=== PATIENT | male | born 1950 | race Caucasian/White ===

== ENCOUNTER → 2016-11-14 | Outpatient (CLI) | payer BC ==
[~2016-11-14] MED LIST: CMD5 PO; FLEC50TA20 PO; LOSA50TA6 PO; METO-551 PO
[2016-11-14 11:43] LABS: HEMATOCRIT 41.6 % (42-52); MEAN CELL VOLUME 87.2 fL (80-100); MEAN CORPUSCULAR HEMOGLOBIN 29.6 pg (25-34); MEAN CORPUSCULAR HGB CONC 33.9 g/dl (32-36); MEAN PLATELET VOLUME 11.3 fL (7.4-10.4); PLATELET COUNT 207 K/uL (130-400); RED BLOOD COUNT 4.77 M/uL (4.7-6.1); WHITE BLOOD COUNT 6.86 K/uL (4.8-10.8)
[2016-11-14 12:10] LABS: ALT/SGPT 22 U/L (12-78); AST/SGOT 13 U/L (15-37); BLOOD UREA NITROGEN 22 mg/dl (7-18); BUN/CREATININE RATIO 15.8 (10-20); CALCIUM 8.8 mg/dl (8.5-10.1); CARBON DIOXIDE 26 mmol/L (21-32); CHLORIDE 105 mmol/L (98-107); GLUCOSE 91 mg/dl (70-99); SODIUM 140 mmol/L (136-145)
[2016-11-14 12:13] LABS: CHOLESTEROL 149 mg/dl (0-200); HDL CHOLESTEROL 50 mg/dl; LDL CHOLESTEROL CALCULATED 74 mg/dl; TRIGLYCERIDES 123 mg/dl (0-150); VERY LOW DENSITY LIPOPROT CALC 25 mg/dl
== END | disposition home or self-care (01) ==
LOC: C.LAB1850 10:41
PROVIDERS: ATTEND Internal Medicine Cardiovascular Disease
DX: I48.91 Unspecified atrial fibrillation (principal); I10 Essential (primary) hypertension; E78.5 Hyperlipidemia, unspecified; Z79.01 Long term (current) use of anticoagulants

== ENCOUNTER → 2016-12-06 | Outpatient (CLI) | payer BC | END | disposition home or self-care (01) | LOC: C.LAB1850 11:19 | PROVIDERS: ATTEND Internal Medicine Cardiovascular Disease | DX: R07.9 Chest pain, unspecified (principal) ==

== ENCOUNTER → 2017-03-07 | Outpatient (CLI) | payer BC ==
--- NOTE | 2017-03-08 06:39 | PAP/PSG TECHNICIAN REPORT ---
[facility] Pharmacy Grad Intern Polysomnogram Report Study name: None Report date: 03/08/2017 Study date: 03/07/2017 Referring Physician: DR. LEDEZMA Name: ARMANDO, PABLO Tellez Interpreting Physician: Jared Santoro D.O. Date of : 1950 Pharmacy Grad Intern: Charlene Lyons RPS. Sex: Male Age: 66 Study Type: PSG Weight: 204 lbs Height: 66 years, Height 5' 11" BMI: 28.45 Medications: FLECAINIDE ACETATE 50 MG, METOPROLOL 25 MG, WARFARIN 5 MG, ATORVASTATIN 40 MG, LOSARTAN 50 MG Patient History 66 yr-old male here for a baseline study. He has a history of atrial fibrillation, daytime sleepiness, and snoring. His Cantril scale is 12. The test was started on room air. ETCO2 testing was not utilized during this study. Room 3 Parameters Monitored NPSG: E1-M2, E2-M1, Fp1-M2, Fp2-M1, F3-M2, F4-M2, F4-M1, C3-M2, C4-M2, C4-M1, O1-M2, O2-M2, O2-M1, T3-M2, T4-M1, P3-M2, P4-M1, CHIN1, CHIN2, HR, EKG, Legs, PFLOW, SNOR, FLOW, CFLOW, Tidal Volume, THOR, ABDO, SpO2, PLTH, CPRESS, ETCO2 Wave, ETCO2, pH Sleep Architecture Sleep Stages Time at Lights Off 11:00:26 PM STAGES Time (min.) TST (%) Time at Lights On 5:37:26 AM Wake 125.5 -- Total Recording Time (TRT) 397.00 min. N1 38.0 14 Total Sleep Period (TSP) 358.5 min. N2 156.5 58 Total Sleep Time (TST) 271.5min. N3 0.0 0 Awake Time 125.5 min. REM 77.0 28 Wake after Sleep Onset 87.5 min. Sleep Efficiency (SE) 68 % Sleep Onset Latency (GUNNER) 38.0 min. Number of Stage 1 Shifts None Awakenings 12 Stage Changes 54 Number of REM periods 4 REM 77.0 28 REM Latency 40.5 min. NREM 194.5 72 Body Position Analysis Supine Right Left Side Prone Vertical Total Sleep Time (min.) 40.7 168.5 103.0 271.50 0.0 0.0 Total Sleep Time (%) 0% 62% 38% 100 0% N/A% Total Sleep Time REM (min.) 0.0 30.0 47.0 None 0.0 0.0 Total Sleep Time NREM (min.) 0.0 138.5 56.0 None 0.0 0.0 Intermittent Wake (min.) 40.7 68.2 16.6 None 0.0 0.0 Total Sleep Period (%) 3% None None None None None Arousals Myoclonus (PLM) * Events Count Index Events Count Index Spontaneous 33 7 Events Awake (PLMW) 83 39.7 Respiratory 1 0.2 Events Asleep w/ Arousal (PLMA) 7 1.5 PLM 7 2 Events Asleep w/o Arousal (PLMS) 49 10.8 Snoring 7 2 Total Asleep 56 12.4 Total 48 11 Total 139 21 Respiratory Analysis * CA OA MA CH H RERA Total Count 0 0 0 0 9 1 9 Index 0.0 0.0 0.0 0 2.0 0 2.2 Mean Duration 0.0 0.0 0.0 0.00 29.9 18.8 28.7 Longest Duration 0.0 0.0 0.0 0.00 0.0 18.8 59.3 Respiratory Event Summary Total Supine ~Supine Right Left Prone REM NREM Apneas Count 0 N/A 0 0 0 N/A 0 0 Index 0.0 N/A 0 0.0 0.0 N/A 0 0 Hypopneas (4% Desat) Count 9 N/A 9 5 4 N/A 8 1 Index 2.0 N/A 2 1.8 2.3 N/A 6.2 0.3 Apneas & All Hypopneas Count 9 N/A 9 5 4 N/A 8 1 Index 2.0 N/A 2 2 2 N/A 6.2 0.3 Respiratory Events (Diamond Sorter+All Hyp+RERA) Count 9 N/A 10 5 5 N/A 8 1 Index 2.2 N/A 2 1.8 2.9 N/A 7.0 0.3 Respiratory Related Arousal Count 1 N/A 1 0 1 N/A 1 0 Index 0.2 N/A 0 0 1 N/A 1 0 Snoring Analysis Supine Right Left Prone REM NREM Total Snore duration 1.1 min Snores count N/A 13 19 N/A 16 16 32 Snore mean duration 2.1 Sec Snores index N/A 5 11 N/A 12.5 4.9 7.1 TST with snoring (%) 0.4% Desaturation Event Summary: Minimum %SpO2 Event Count Mean/Min/Max Duration(sec.) Desaturation Index % Time In Bed > 90 40 32.5 / 13.3 / 59.8 7.1 85.8 86 - 90 4 21.9 / 9.8 / 28.3 4.3 14.1 81 - 85 0 N/A 0.0 0.0 76 - 80 0 N/A 0.0 0.0 71 - 75 0 N/A 0.0 0.0 66 - 70 0 N/A 0.0 0.0 61 - 65 0 N/A 0.0 0.0 56 - 60 0 N/A 0.0 0.0 51 - 55 0 N/A 0.0 0.0 < 50 0 N/A 0.0 0.0 Total REM NREM Awake <50% 0.0 min. 0.0 min. 0.0 min. 0.0 min. 51 - 60% 0.0 min. 0.0 min. 0.0 min. 0.0 min. 61 - 70% 0.0 min. 0.0 min. 0.0 min. 0.0 min. 71 - 80% 0.0 min. 0.0 min. 0.0 min. 0.0 min. 81 - 90% 55.8 min. 14.4 min. 13.7 min. 27.7 min. 91 - 100% 338.3 min. 62.6 min. 180.8 min. 95.0 min. Average 92 92 92 92 Minimum SpO2 84 87 89 84 Desaturation Event Index 6.2 9.4 0.3 13.9 # Desat. Events below 89% 19 4 N/A 15 Time(%) with Saturation below 89% 1.5 0.5 0.0 1.0 Time(min.) with Saturation below 89% 5.9 1.8 0.0 4.1 Time (mins) REM (mins) NREM (mins) % of TST SpO2 Below 90% 12 12 NN/A 2.3 SpO2 Below 88% 2 0 0 0 Heart Rate Analysis Min (bpm) Max (bpm) Average (bpm) Awake 41 127 47 NREM 41 75 43 REM 39 63 43 Overall 39 75 43 Supplemental O2 Values Minimum O2 level: None Value Start Time End Time Pharmacy Grad Intern Comments Mr. Delgado slept in the right and left positions. No cardiac arrhythmia were noted. Some PLMs were noted. No bruxism noted. Snoring was noted and scored as a 1 on a scale of 1 through 5. (0=no snoring, 5=snoring loud enough to be heard through a closed door or down the [address]). He did not wake up to use the restroom during the night. Mr. Delgado stated that he slept about the same as usual. The final report will be interpreted and signed by a sleep physician. The completed physician report will then be placed in the patient medical record. Therapy (cm H2O) 0 TIB (min.) 397.0 TST (min.) 271.5 Sleep Onset (min.) 38.0 REM Onset From Sleep (min.) 40.5 Sleep Efficiency % 68 Wakefulness (%) 32 Wakefulness (min.) 125.5 NREM 1 (%) 14 NREM 1 (min.) 38.0 NREM 2 (%) 58 NREM 2 (min.) 156.5 NREM 3 (%) 0 NREM 3 (min.) 0.0 REM (%) 28 REM (min.) 77.0 # Arousals 48 Arousal Index 11 # Snore 32 Snore Index 7.1 AHI 2.0 AHI Supine N/A AHI Non-Supine 2 NREM AHI 0.3 REM AHI 6.2 RDI 2.2 # Obstructive Apnea 0 # Central Apnea 0 # Mixed Apnea 0 # Hypopneas 9 RERAs 1 Total Respiratory Events 10 Time Below SpO2 89% (min.) 1.8 Mean NREM SpO2 (%) 92 Mean REM SpO2 (%) 92 Mean Sleep SpO2 (%) 92 Min NREM SpO2 (%) 89 Min REM SpO2 (%) 87 Position Supine (min.) 40.7 Position Non-supine (min.) 271.5 LM Index Sleep 12.4 LM Index NREM 6.5 LM Index REM 27.3 Mean Heart Rate (bpm) 43 Min Heart Rate (bpm) 39
--- NOTE | 2017-03-14 06:52 | CODING QUERY MEDICAL NECESSITY ---
CQSUPPORTING DIAGNOSIS NEEDED A supporting diagnosis is required for the test/procedure performed on this patient in order for us to be reimbursed by the patient's insurance. Please provide a supporting diagnosis for the following test/procedure listed below next to the test name along with your signature. *If there is no additional diagnosis for this patient that would support the following test/procedure please document that below next to the test/procedure. Test(s)/Procedure(s) that require a supporting diagnosis: MADDY 03/07/17 SLEEP STUDY Provider Signature: Date: Thank you Renay Gomez [employer] Information Management Once completed, please kindly fax back to [phone] For questions please call [phone]
--- NOTE | 2017-03-14 09:02 | POLYSOMNOGRAPH REPORT ---
REFERRING PHYSICIAN: Dr. Prather. PRIMARY PHYSICIAN: Dr. Lewis. CLINICAL DATA: The patient is a 66-year-old male who has a history of atrial fibrillation. He has snoring and excessive daytime somnolence. His [place] Sleepiness Scale Score is 12 out of a possible 24. His BMI is mildly elevated at 28.45. This was a diagnostic in-lab sleep study. SLEEP ARCHITECTURE: The total sleep period was 358.5 minutes. The total sleep time was 271.5 minutes. The sleep efficiency was moderately reduced to 68%. The sleep onset latency was elevated at 38 minutes. Wake after sleep onset was elevated at 87.5 minutes. The REM latency was mildly shortened at 40.5 minutes. There were 4 REM periods during the night. Sleep consisted of stage N1 14%, stage N2 58%, stage N3 0%, and stage REM 28%. AROUSAL DATA: The patient had a total of 48 arousals including 33 spontaneous arousals, 1 respiratory arousal, 7 PLM arousals, and 7 snoring arousals. The arousal index was 11. PLM DATA: The patient had 56 periodic limb movements of sleep for an index of 12.4. There were 7 arousals, associated with limb movements for a PLM arousal index of only 1.5. EKG: The underlying cardiac rhythm was normal sinus. The cardiac rates ranged from 39-75 beats per minute. It is notable that during EPOCH 628 for approximately 30 seconds the patient appeared to have a short burst of paroxysmal atrial fibrillation. This occurred at 2:10 a.m. Rare PACs were otherwise seen. RESPIRATORY DATA: The patient had a total of 9 respiratory events, all hypopneas. Hypopneas were scored according to the 4% desaturation rule. The apnea-hypopnea index was 2.0 events per hour which is normal. This would suggest no significant sleep apnea. OXIMETRY DATA: The average saturation for the night was 92%. The minimum saturation was 84%. There was a total of only 2 minutes with saturations less than 88%. SPECIAL EFFECTS SPECIALIST COMMENTS: Mr. Delgado slept in the right and left positions. Some PLMs were noted. No bruxism noted. Snoring was noted and scored as a 1 on a scale of 1 through 5. IMPRESSIONS: 1. No significant obstructive sleep apnea. 2. Paroxysmal atrial fibrillation. 3. Mild periodic limb movement disorder. COMMENTS: The patient had a decrease sleepy efficiency. He had somewhat of a prolonged sleep onset and then had 1 fairly prolonged episode of wake during the night time. The arousals were mildly increased. There was no significant sleep apnea. Oxygenation was essentially normal. He did have what appears to be 1 short burst of paroxysmal atrial fibrillation. He does have a longstanding history of atrial fibrillation. It is unlikely that the limb movements are significantly abnormal. RECOMMENDATIONS: 1. In light of the patient's complaints of daytime sleepiness but without significant sleep apnea, it is advised that he be made aware of the appropriate principles of sleep hygiene. This would include having a fairly regular sleep-wake schedule and allowing approximately 8 hours of sleep time per night. 2. Followup is deferred to Dr. Prather who referred the patient. DAYANNA
== END | disposition home or self-care (01) ==
LOC: C.NEUR 21:00
PROVIDERS: ATTEND Internal Medicine Cardiovascular Disease
DX: R06.83 Snoring (principal); I48.91 Unspecified atrial fibrillation; I71.2 Thoracic aortic aneurysm, without rupture; R00.1 Bradycardia, unspecified; I10 Essential (primary) hypertension; E78.5 Hyperlipidemia, unspecified; F32.9 Major depressive disorder, single episode, unspecified

== ENCOUNTER → 2017-04-17 | Outpatient (CLI) | payer BC ==
[~2017-04-17] MED LIST changes: +OPTIRAY 320 IV PRN
--- NOTE | 2017-04-17 11:01 | DIAGNOSTIC IMAGING REPORT ---
CT CHEST ANGIO WITH CONTRAST CT DOSE: 400.82 mGy.cm CLINICAL HISTORY: Thoracic aortic aneurysm TECHNIQUE: The patient was scanned in a dynamic helical fashion during intravenous administration of 115 cc of Optiray 320. MIP imaging was performed. COMPARISON STUDY: 03/28/2016 FINDINGS: There is dilatation of the ascending thoracic aorta which measures 44 mm in diameter. There are no intimal flaps to indicate a thoracic aortic aneurysm. There are no pulmonary artery filling defects to indicate acute pulmonary embolism. There are no pathologically enlarged axillary, mediastinal, or hilar lymph nodes. There is a 3 cm right renal cyst. There is a 9 mm left lobe hepatic hypodensity, similar to the prior study. There is a probable gallstone. There are no pleural effusions. There is no focal pulmonary consolidation. There are minor dependent atelectatic changes. IMPRESSION: 1. Stable aneurysmal dilatation of the ascending thoracic aorta which measures 4.5 cm in diameter. 2. No evidence of pathologic adenopathy 3. No evidence of focal pulmonary consolidation Electronically signed by: Jon Serna M.D. 04/17/2017 11:00 AM Dictated Date/Time: 04/17/2017 10:54 AM
== END | disposition home or self-care (01) ==
LOC: C.CTS 10:05
PROVIDERS: ATTEND Internal Medicine Cardiovascular Disease
DX: I71.2 Thoracic aortic aneurysm, without rupture (principal)

== ENCOUNTER → 2017-05-31 | Outpatient (CLI) | payer BC ==
[~2017-05-31] MED LIST changes: -OPTIRAY 320 IV PRN
[2017-05-31 12:15] LABS: HEMATOCRIT 42.3 % (42-52); MEAN CELL VOLUME 86.7 fL (80-100); MEAN CORPUSCULAR HEMOGLOBIN 29.9 pg (25-34); MEAN CORPUSCULAR HGB CONC 34.5 g/dl (32-36); PLATELET COUNT 193 K/uL (130-400); RED BLOOD COUNT 4.88 M/uL (4.7-6.1); WHITE BLOOD COUNT 5.34 K/uL (4.8-10.8)
[2017-05-31 13:18] LABS: ALT/SGPT 23 U/L (12-78); AST/SGOT 16 U/L (15-37); BLOOD UREA NITROGEN 20 mg/dl (7-18); BUN/CREATININE RATIO 16.9 (10-20); CALCIUM 8.9 mg/dl (8.5-10.1); CARBON DIOXIDE 25 mmol/L (21-32); CHLORIDE 105 mmol/L (98-107); GLUCOSE 93 mg/dl (70-99); SODIUM 138 mmol/L (136-145)
== END | disposition home or self-care (01) ==
LOC: C.LAB1850 10:20
PROVIDERS: ATTEND Internal Medicine Cardiovascular Disease
DX: I10 Essential (primary) hypertension (principal); I48.91 Unspecified atrial fibrillation; E78.5 Hyperlipidemia, unspecified; I71.2 Thoracic aortic aneurysm, without rupture; R00.1 Bradycardia, unspecified